=== PATIENT | male | born 1950 | race Caucasian/White ===

== ENCOUNTER → 2019-01-02 | Outpatient (CLI) | payer MEDICARE, OTHER ==
--- NOTE | 2019-01-02 11:47 | KCIC ---
EXAM: Left wrist, 3 views. HISTORY: Pain. COMPARISON: None. FINDINGS: 3 views of the left wrist are obtained. There is no fracture, dislocation or subluxation. IMPRESSION: No acute osseous finding. Electronically signed by: Margret Almanzar MD (01/02/2019 11:42 AM) [place] [id number]
--- NOTE | 2019-01-02 11:57 | KCIC ---
Two-view left hip dated 01/02/2019. No comparison available. Clinical data indication: Left hip pain after fall a few weeks ago. FINDINGS: 2 views left hip show normal bony alignment. No displaced fracture. Mild to moderate degenerative change at the left hip joint with mild degenerative change of the left SI joint and pubic symphysis. No periostitis or bone destruction. No acute osseous or articular abnormality. IMPRESSION: 1. No acute radiographic abnormality. 2. Degenerative changes as described Electronically signed by: Parmjit Cancino MD (01/02/2019 11:52 AM) [id number]
== END | disposition home or self-care (01) ==
LOC: KCIC 10:17
PROVIDERS: ATTEND Family Medicine
DX: M16.12 Unilateral primary osteoarthritis, left hip (principal); M25.532 Pain in left wrist
CPT/HCPCS: 73110; 73502